=== PATIENT | male | born 1940 | race Caucasian/White ===

== ENCOUNTER 2022-06-22 09:07 | Outpatient (CLI) | payer MEDICARE, OTHER | END 2022-06-22 09:08 | disposition home or self-care (01) | LOC: MRI 09:07 | PROVIDERS: ATTEND Nurse Practitioner Family | DX: R41.3 Other amnesia (principal); F39 Unspecified mood [affective] disorder; I67.89 Other cerebrovascular disease; G93.89 Other specified disorders of brain | CPT/HCPCS: 70551 ==

== ENCOUNTER 2023-01-19 08:26 | Outpatient (CLI) | payer MEDICARE, OTHER | END 2023-01-19 08:27 | disposition home or self-care (01) | LOC: BICRAD 08:26 | PROVIDERS: ATTEND Nurse Practitioner Family | DX: J98.4 Other disorders of lung (principal) | CPT/HCPCS: 71046 ==

== ENCOUNTER 2023-02-08 09:44 | Outpatient (CLI) | payer MEDICARE, OTHER | END 2023-02-08 09:45 | disposition home or self-care (01) | LOC: RAD 09:44 | PROVIDERS: ATTEND Internal Medicine Critical Care Medicine | DX: R06.00 Dyspnea, unspecified (principal) | CPT/HCPCS: 71046 ==

== ENCOUNTER 2023-02-23 11:45 | Outpatient (CLI) | payer MEDICARE, OTHER | END 2023-02-23 11:46 | disposition home or self-care (01) | LOC: PET 11:45 | PROVIDERS: ATTEND Internal Medicine Critical Care Medicine | DX: R91.8 Other nonspecific abnormal finding of lung field (principal); C34.32 Malignant neoplasm of lower lobe, left bronchus or lung | CPT/HCPCS: 78815; A9552 ==

== ENCOUNTER 2023-03-27 06:09 | Inpatient (IN) | payer MEDICARE, OTHER ==
[2023-03-27] MEDS ORDERED: SUGAMMADEX SODIUM 200 MG/2 ML VIAL ONE (06:47)
[2023-03-27] MEDS ORDERED: Fentanyl 250 MCG/5 ML VIAL ONE (06:47)
[2023-03-27] MEDS ORDERED: Vasopressin 20 UNITS/ML VIAL ONE (06:47)
[2023-03-27] MEDS ORDERED: Rocuronium Bromide 50 MG/5 ML VIAL ONE (06:47)
[2023-03-27] MEDS ORDERED: Midazolam HCl 2 mg/2 ml Vial ONE (06:47)
[2023-03-27 07:01] LABS: #Basophils 0.1 thou/uL (0.0-0.2); #Eosinphils 0.1 thou/uL (0.0-0.7); #Monocytes 1.1 thou/uL (0.11-0.59); #Neutrophils 6.4 thou/uL (1.40-6.50); %Basophils 0.6 % (0.0-1.0); %Lymphocytes 15.6 % (21.0-51.0); %Monocytes 11.9 % (0.0-10.0); %Neutrophils 70.5 % (42.0-75.0); Hematocrit 39.1 % (42.0-52.0); Hemoglobin 12.7 g/dL (14.0-18.0); Mean Corpuscular HGB CONC 32.5 g/dL (32.0-36.0); Mean Corpuscular Volume 89.3 fl (78.0-98.0); Mean Platelet Volume 8.7 fL (7.4-10.4); Platelet Count 224 10x3/uL (130-400); RBC Distribution Width 13.7 % (11.5-14.5); Red Blood Cell (RBC) Count 4.38 mill/uL (4.70-6.10); White Blood Cell (WBC) Count 9.1 10x3/uL (4.8-10.8)
[2023-03-27] MEDS ORDERED: Lidocaine 1% MPF 2 ML VIAL ONE (07:15)
[2023-03-27] MEDS ORDERED: Lidocaine 2% PF 5 ML VIAL ONE (07:15)
[2023-03-27 07:22] LABS: Anion Gap 11 mmol/L (10-20); BUN (Urea Nitrogen) 19 mg/dL (8.4-25.7); Calc. Creatinine Clearance 88 mL/min (70-130); Calcium 9.6 mg/dL (7.8-10.44); Carbon Dioxide 28 mmol/L (23-31); Chloride 99 mmol/L (98-107); Estimated GFR 89; Glucose 134 mg/dL (83-110); Potassium 4.1 mmol/L (3.5-5.1); Sodium 134 mmol/L (136-145)
[2023-03-27] MEDS ORDERED: Sodium Chloride 0.9% 100 ML ONE (07:31)
[2023-03-27] MEDS ORDERED: CEFAZOLIN 2 GM VIAL ONE (07:31)
[2023-03-27] MEDS ORDERED: Rocuronium Bromide 10 MG/ML (10ML VIAL) ONE (07:50)
[2023-03-27] MEDS ORDERED: Ondansetron PF 4 MG/2 ML Vial ONE (07:50)
[2023-03-27] MEDS ORDERED: Lidocaine 1.5% w/Epi 1:200K 30 ML VIAL (Epid Use) ONE (07:50)
[2023-03-27] MEDS ORDERED: Dexamethasone 20 MG/5 ML VIAL ONE (07:50)
[2023-03-27] MEDS ORDERED: Lidocaine 1% PF 5 ML VIAL ONE ×2 (07:50→08:28)
[2023-03-27] MEDS ORDERED: PROPOFOL 200 MG/20 ML VIAL ONE (07:50)
[2023-03-27] MEDS ORDERED: Naloxone HCl 0.4 mg/ml Vial IV PRN (08:00)
[2023-03-27] MEDS ORDERED: diphenhydrAMINE 25 MG CAP PO PRN (08:00)
[2023-03-27] MEDS ORDERED: Promethazine HCl 25 MG SUPP PR PRN (08:00)
[2023-03-27] MEDS ORDERED: Bupivacaine 0.25% 10 ML VIAL EPIDURAL PRN (08:00)
[2023-03-27] MEDS ORDERED: Moisturizing Cream (Eucerin) 113 GM JAR TOP PRN (08:00)
[2023-03-27] MEDS ORDERED: diphenhydrAMINE 50 MG/ML VIAL IM PRN (08:00)
[2023-03-27] MEDS ORDERED: Promethazine HCl 25 MG/ML VIAL IM PRN ×2 (08:00→10:26)
[2023-03-27] MEDS ORDERED: Naloxone HCl 0.4 mg/ml Vial IVP PRN (08:00)
[2023-03-27] MEDS ORDERED: traMADol HCl 50 MG TAB PO PRN (08:00)
[2023-03-27] MEDS ORDERED: diphenhydrAMINE 50 MG/ML VIAL IVP PRN (08:00)
[2023-03-27] MEDS ORDERED: Ipratropium/Albuterol 3 ML NEB NEB PRN (10:26)
[2023-03-27] MEDS ORDERED: Phenylephrine 40 MG in Sodium Chloride 0.9% 250 ML 250 ML IVPB PRN (10:26)
[2023-03-27] MEDS ORDERED: Ondansetron PF 4 MG/2 ML Vial IVP PRN (10:26)
[2023-03-27] MEDS ORDERED: Ketorolac Tromethamine 30 MG/ML VIAL ONE (11:22)
[2023-03-27] MEDS ORDERED: fentaNYL 50 mcg/mL 1 mL Vial ONE (11:46)
[2023-03-27] MEDS: Sodium Chloride 0.9% 1,000 ML IV SCH ×2 (13:00→23:46)
[2023-03-27] MEDS: Ketorolac Tromethamine 30 MG/ML VIAL IVP SCH ×3 (13:28→23:54)
[2023-03-27] MEDS: CEFAZOLIN 2 GM in Sodium Chloride 0.9% 100 ML IVPB SCH ×2 (14:32→21:41)
[2023-03-27] MEDS: Insulin Regular 300 UNITS/3 ML VIAL SC PRN ×2 (16:27→20:24)
[2023-03-27] MEDS: metFORMIN 500 MG TAB PO SCH (20:23)
[2023-03-27] MEDS: Donepezil HCl 5 MG TAB PO SCH (20:23)
[2023-03-27] MEDS: Fentanyl/Bupivacaine 100 ML EPIDURAL SCH (22:25)
[2023-03-28 05:05] LABS: #Basophils 0.1 thou/uL (0.0-0.2); #Eosinphils 0.2 thou/uL (0.0-0.7); #Monocytes 1.4 thou/uL (0.11-0.59); #Neutrophils 9.5 thou/uL (1.40-6.50); %Basophils 0.4 % (0.0-1.0); %Eosinophils 1.2 % (0.0-10.0); %Lymphocytes 11.4 % (21.0-51.0); %Monocytes 10.9 % (0.0-10.0); %Neutrophils 75.6 % (42.0-75.0); Hematocrit 37.1 % (42.0-52.0); Mean Corpuscular HGB CONC 32.3 g/dL (32.0-36.0); Mean Corpuscular Hemoglobin 29.3 pg (27.0-31.0); Mean Corpuscular Volume 90.7 fl (78.0-98.0); Mean Platelet Volume 8.6 fL (7.4-10.4); Platelet Count 223 10x3/uL (130-400); Red Blood Cell (RBC) Count 4.09 mill/uL (4.70-6.10); White Blood Cell (WBC) Count 12.5 10x3/uL (4.8-10.8)
[2023-03-28 05:27] LABS: Anion Gap 11 mmol/L (10-20); BUN (Urea Nitrogen) 20 mg/dL (8.4-25.7); Calc. Creatinine Clearance 90 mL/min (70-130); Calcium 8.6 mg/dL (7.8-10.44); Carbon Dioxide 26 mmol/L (23-31); Chloride 101 mmol/L (98-107); Estimated GFR 90; Glucose 135 mg/dL (83-110); Potassium 4.7 mmol/L (3.5-5.1); Sodium 133 mmol/L (136-145)
[2023-03-28] MEDS: CEFAZOLIN 2 GM in Sodium Chloride 0.9% 100 ML IVPB SCH (05:32)
[2023-03-28] MEDS: Ketorolac Tromethamine 30 MG/ML VIAL IVP SCH ×3 (05:32→17:21)
[2023-03-28] MEDS: metFORMIN 500 MG TAB PO SCH ×2 (08:11→21:04)
[2023-03-28] MEDS: Sodium Chloride 0.9% 1,000 ML IV SCH (08:11)
[2023-03-28] MEDS: Empagliflozin 10 MG TAB PO SCH (08:12)
[2023-03-28] MEDS: Aspirin 81 mg Enteric Coated Tablet PO SCH (08:12)
[2023-03-28] MEDS: Cyanocobalamin (Vitamin B-12) 1,000 MCG TAB PO SCH (08:12)
[2023-03-28] MEDS: Ferrous Sulfate 325 MG TAB PO SCH (08:12)
[2023-03-28] MEDS: Glimepiride 1 MG TAB PO SCH (08:12)
[2023-03-28] MEDS: Sertraline 25 MG TAB PO SCH (08:12)
[2023-03-28] MEDS: Rosuvastatin 10 MG TAB PO SCH (08:12)
[2023-03-28] MEDS ORDERED: Non-Formulary Item 1 EACH (Ferrous Sulfate [Ferosul] 325 MG Tablet) PO SCH (09:00)
[2023-03-28] MEDS ORDERED: Non-Formulary Item 1 EACH (Sertraline Hcl [Zoloft] 50 MG Tablet) PO SCH (09:00)
[2023-03-28] MEDS ORDERED: Non-Formulary Item 1 EACH (Metformin Hcl [Metformin Hcl] 1,000 MG Tablet) PO SCH (09:58)
[2023-03-28] MEDS: Insulin Regular 300 UNITS/3 ML VIAL SC PRN ×3 (11:09→22:20)
[2023-03-28] MEDS: Fentanyl/Bupivacaine 100 ML EPIDURAL SCH (11:15)
[2023-03-28] MEDS: Donepezil HCl 5 MG TAB PO SCH (21:05)
[2023-03-28] MEDS: hydrALAZINE 20 MG/ML VIAL SLOW IVP PRN (22:25)
[2023-03-29] MEDS: Fentanyl/Bupivacaine 100 ML EPIDURAL SCH (00:24)
[2023-03-29] MEDS: Ketorolac Tromethamine 30 MG/ML VIAL IVP SCH ×2 (00:44→05:31)
[2023-03-29] MEDS: hydrALAZINE 20 MG/ML VIAL SLOW IVP PRN ×3 (03:51→22:28)
[2023-03-29] MEDS ORDERED: Furosemide 40 MG/4 ML VIAL SLOW IVP SCH (06:30)
[2023-03-29] MEDS: Ipratropium/Albuterol 3 ML NEB EZPAP SCH ×4 (06:41→23:16)
[2023-03-29] MEDS ORDERED: Furosemide 40 MG TAB PO SCH (07:30)
[2023-03-29] MEDS ORDERED: BUPIVACAINE 0.75% EPIDURAL SCH (08:00)
[2023-03-29] MEDS ORDERED: SODIUM CHLORIDE 0.9% EPIDURAL SCH (08:00)
[2023-03-29] MEDS: Ferrous Sulfate 325 MG TAB PO SCH (08:48)
[2023-03-29] MEDS: Glimepiride 1 MG TAB PO SCH (08:48)
[2023-03-29] MEDS: Empagliflozin 10 MG TAB PO SCH (08:49)
[2023-03-29] MEDS: Cyanocobalamin (Vitamin B-12) 1,000 MCG TAB PO SCH (08:49)
[2023-03-29] MEDS: Aspirin 81 mg Enteric Coated Tablet PO SCH (08:49)
[2023-03-29] MEDS: metFORMIN 500 MG TAB PO SCH ×2 (08:50→21:25)
[2023-03-29] MEDS: Sertraline 25 MG TAB PO SCH (08:50)
[2023-03-29] MEDS: Rosuvastatin 10 MG TAB PO SCH (08:50)
[2023-03-29] MEDS: HYDROcodone/Acetaminophen 5/325 mg Tablet PO PRN ×2 (11:17→21:26)
[2023-03-29] MEDS: Insulin Regular 300 UNITS/3 ML VIAL SC PRN ×2 (11:21→16:46)
[2023-03-29] MEDS: Ondansetron PF 4 MG/2 ML Vial IVP PRN (13:48)
[2023-03-29] MEDS: Furosemide 40 MG TAB PO SCH (14:45)
[2023-03-29] MEDS: Donepezil HCl 5 MG TAB PO SCH (21:27)
[2023-03-30] MEDS: Ondansetron PF 4 MG/2 ML Vial IVP PRN (00:13)
[2023-03-30] MEDS: Ipratropium/Albuterol 3 ML NEB EZPAP SCH ×4 (07:09→23:28)
[2023-03-30] MEDS ORDERED: Midazolam HCl 2 mg/2 ml Vial SLOW IVP SCH (09:00)
[2023-03-30] MEDS ORDERED: fentaNYL 50 mcg/mL 1 mL Vial SLOW IVP SCH (09:00)
[2023-03-30 09:30] LABS: #Eosinphils 0.1 thou/uL (0.0-0.7); #Monocytes 1.3 thou/uL (0.11-0.59); #Neutrophils 11.9 thou/uL (1.40-6.50); %Basophils 0.2 % (0.0-1.0); %Eosinophils 0.7 % (0.0-10.0); %Lymphocytes 5.5 % (21.0-51.0); %Monocytes 9.3 % (0.0-10.0); %Neutrophils 83.7 % (42.0-75.0); Hematocrit 42.3 % (42.0-52.0); Hemoglobin 13.8 g/dL (14.0-18.0); Mean Corpuscular HGB CONC 32.6 g/dL (32.0-36.0); Mean Corpuscular Hemoglobin 28.9 pg (27.0-31.0); Mean Corpuscular Volume 88.5 fl (78.0-98.0); Mean Platelet Volume 8.5 fL (7.4-10.4); Platelet Count 288 10x3/uL (130-400); Red Blood Cell (RBC) Count 4.78 mill/uL (4.70-6.10); White Blood Cell (WBC) Count 14.2 10x3/uL (4.8-10.8)
[2023-03-30] MEDS: Glimepiride 1 MG TAB PO SCH (09:32)
[2023-03-30] MEDS: Ferrous Sulfate 325 MG TAB PO SCH (09:32)
[2023-03-30] MEDS: Cyanocobalamin (Vitamin B-12) 1,000 MCG TAB PO SCH (09:33)
[2023-03-30] MEDS: Empagliflozin 10 MG TAB PO SCH (09:33)
[2023-03-30] MEDS: Aspirin 81 mg Enteric Coated Tablet PO SCH (09:33)
[2023-03-30] MEDS: Losartan 25 MG TAB PO SCH (09:34)
[2023-03-30] MEDS: Rosuvastatin 10 MG TAB PO SCH (09:34)
[2023-03-30] MEDS: Sertraline 25 MG TAB PO SCH (09:34)
[2023-03-30] MEDS: metFORMIN 500 MG TAB PO SCH ×2 (09:34→20:49)
[2023-03-30 09:40] LABS: Anion Gap 19 mmol/L (10-20); BUN (Urea Nitrogen) 20 mg/dL (8.4-25.7); Calc. Creatinine Clearance 84 mL/min (70-130); Calcium 9.3 mg/dL (7.8-10.44); Carbon Dioxide 22 mmol/L (23-31); Chloride 91 mmol/L (98-107); Estimated GFR 88; Glucose 145 mg/dL (83-110); Potassium 4.2 mmol/L (3.5-5.1); Sodium 128 mmol/L (136-145)
[2023-03-30] MEDS ORDERED: Acetylcysteine (MUCOMYST) 200 MG/ML (10 ML VIAL) NEB SCH (10:00)
[2023-03-30] MEDS: Bisacodyl 10 MG SUPP PR PRN (10:40)
[2023-03-30] MEDS ORDERED: Lidocaine 1% (PF) 30 ML VIAL ONE (14:11)
[2023-03-30] MEDS ORDERED: Lidocaine 2% Jelly 5 ML TUBE TOP SCH (15:45)
[2023-03-30] MEDS ORDERED: Lidocaine 1% (PF) 30 ML VIAL FS SCH (15:45)
[2023-03-30] MEDS: Furosemide 40 MG TAB PO SCH (15:55)
[2023-03-30] MEDS: Acetylcysteine 20% 200 MG/ML 30 ML VIAL INH SCH (18:19)
[2023-03-30] MEDS: Insulin Regular 300 UNITS/3 ML VIAL SC PRN (20:48)
[2023-03-30] MEDS: Donepezil HCl 5 MG TAB PO SCH (20:49)
[2023-03-31] MEDS: Acetylcysteine 20% 200 MG/ML 30 ML VIAL INH SCH ×2 (06:30→18:26)
[2023-03-31] MEDS: Ipratropium/Albuterol 3 ML NEB EZPAP SCH ×5 (06:31→22:12)
[2023-03-31] MEDS: HYDROcodone/Acetaminophen 5/325 mg Tablet PO PRN ×2 (07:09→16:06)
[2023-03-31] MEDS: Ondansetron PF 4 MG/2 ML Vial IVP PRN (07:09)
[2023-03-31] MEDS: Empagliflozin 10 MG TAB PO SCH (08:01)
[2023-03-31] MEDS: metFORMIN 500 MG TAB PO SCH ×2 (08:02→20:13)
[2023-03-31] MEDS: Rosuvastatin 10 MG TAB PO SCH (08:02)
[2023-03-31] MEDS: Aspirin 81 mg Enteric Coated Tablet PO SCH (08:02)
[2023-03-31] MEDS: Ferrous Sulfate 325 MG TAB PO SCH (08:02)
[2023-03-31] MEDS: Cyanocobalamin (Vitamin B-12) 1,000 MCG TAB PO SCH (08:02)
[2023-03-31] MEDS: Glimepiride 1 MG TAB PO SCH (08:02)
[2023-03-31] MEDS: Sertraline 25 MG TAB PO SCH (08:02)
[2023-03-31] MEDS: Losartan 25 MG TAB PO SCH (09:53)
[2023-03-31] MEDS: cefTRIAXone\\ROCEPHIN 2 GM in Sodium Chloride 0.9% 100 ML IVPB SCH (10:55)
[2023-03-31] MEDS: Insulin Regular 300 UNITS/3 ML VIAL SC PRN ×3 (12:11→20:16)
[2023-03-31] MEDS: Furosemide 40 MG TAB PO SCH ×2 (15:40→17:24)
[2023-03-31] MEDS: traMADol HCl 50 MG TAB PO PRN (17:58)
[2023-03-31] MEDS: Donepezil HCl 5 MG TAB PO SCH (20:13)
[2023-04-01] MEDS: Ipratropium/Albuterol 3 ML NEB EZPAP SCH ×6 (02:22→22:19)
[2023-04-01] MEDS: HYDROcodone/Acetaminophen 5/325 mg Tablet PO PRN ×3 (06:00→23:07)
[2023-04-01] MEDS: Acetylcysteine 20% 200 MG/ML 30 ML VIAL INH SCH ×2 (06:33→19:37)
[2023-04-01] MEDS: metFORMIN 500 MG TAB PO SCH ×2 (07:19→20:33)
[2023-04-01] MEDS: Ferrous Sulfate 325 MG TAB PO SCH (07:20)
[2023-04-01] MEDS: Glimepiride 1 MG TAB PO SCH (07:20)
[2023-04-01] MEDS: Empagliflozin 10 MG TAB PO SCH (07:20)
[2023-04-01] MEDS: Losartan 25 MG TAB PO SCH (09:32)
[2023-04-01] MEDS: cefTRIAXone\\ROCEPHIN 2 GM in Sodium Chloride 0.9% 100 ML IVPB SCH (09:39)
[2023-04-01] MEDS: Sertraline 25 MG TAB PO SCH (09:39)
[2023-04-01] MEDS: Rosuvastatin 10 MG TAB PO SCH (09:39)
[2023-04-01] MEDS: Cyanocobalamin (Vitamin B-12) 1,000 MCG TAB PO SCH (09:39)
[2023-04-01] MEDS: Aspirin 81 mg Enteric Coated Tablet PO SCH (09:39)
[2023-04-01] MEDS: Insulin Regular 300 UNITS/3 ML VIAL SC PRN ×2 (13:19→20:34)
[2023-04-01] MEDS: Furosemide 40 MG TAB PO SCH (15:57)
[2023-04-01] MEDS: Donepezil HCl 5 MG TAB PO SCH (20:33)
[2023-04-02] MEDS: Ipratropium/Albuterol 3 ML NEB EZPAP SCH ×6 (02:17→21:33)
[2023-04-02] MEDS: Acetylcysteine 20% 200 MG/ML 30 ML VIAL INH SCH ×2 (06:43→18:17)
[2023-04-02] MEDS: Glimepiride 1 MG TAB PO SCH (07:33)
[2023-04-02] MEDS: Ferrous Sulfate 325 MG TAB PO SCH (07:33)
[2023-04-02] MEDS: Empagliflozin 10 MG TAB PO SCH (08:23)
[2023-04-02] MEDS: Rosuvastatin 10 MG TAB PO SCH (08:23)
[2023-04-02] MEDS: metFORMIN 500 MG TAB PO SCH ×2 (08:23→20:07)
[2023-04-02] MEDS: Sertraline 25 MG TAB PO SCH (08:23)
[2023-04-02] MEDS: Losartan 25 MG TAB PO SCH (08:23)
[2023-04-02] MEDS: Aspirin 81 mg Enteric Coated Tablet PO SCH (08:23)
[2023-04-02] MEDS: Cyanocobalamin (Vitamin B-12) 1,000 MCG TAB PO SCH (08:23)
[2023-04-02] MEDS: HYDROcodone/Acetaminophen 5/325 mg Tablet PO PRN ×2 (10:14→20:08)
[2023-04-02] MEDS: cefTRIAXone\\ROCEPHIN 2 GM in Sodium Chloride 0.9% 100 ML IVPB SCH (10:15)
[2023-04-02] MEDS: Insulin Regular 300 UNITS/3 ML VIAL SC PRN ×2 (13:59→20:30)
[2023-04-02] MEDS: Furosemide 40 MG TAB PO SCH (16:00)
[2023-04-02] MEDS: Cefepime 2 GM in Sodium Chloride 0.9% 100 ML IVPB SCH (20:04)
[2023-04-02] MEDS: Donepezil HCl 5 MG TAB PO SCH (20:06)
[2023-04-03] MEDS: HYDROcodone/Acetaminophen 5/325 mg Tablet PO PRN (00:30)
[2023-04-03] MEDS: Ipratropium/Albuterol 3 ML NEB EZPAP SCH ×6 (02:10→21:49)
[2023-04-03] MEDS: Acetylcysteine 20% 200 MG/ML 30 ML VIAL INH SCH ×2 (07:08→18:22)
[2023-04-03] MEDS: Rosuvastatin 10 MG TAB PO SCH (09:41)
[2023-04-03] MEDS: Cefepime 2 GM in Sodium Chloride 0.9% 100 ML IVPB SCH (09:41)
[2023-04-03] MEDS: metFORMIN 500 MG TAB PO SCH ×2 (09:41→21:37)
[2023-04-03] MEDS: Glimepiride 1 MG TAB PO SCH (09:41)
[2023-04-03] MEDS: Losartan 25 MG TAB PO SCH (09:41)
[2023-04-03] MEDS: Ferrous Sulfate 325 MG TAB PO SCH (09:41)
[2023-04-03] MEDS: Empagliflozin 10 MG TAB PO SCH (09:42)
[2023-04-03] MEDS: Aspirin 81 mg Enteric Coated Tablet PO SCH (09:42)
[2023-04-03] MEDS: Cyanocobalamin (Vitamin B-12) 1,000 MCG TAB PO SCH (09:42)
[2023-04-03] MEDS: Sertraline 25 MG TAB PO SCH (09:42)
[2023-04-03] MEDS: Ondansetron PF 4 MG/2 ML Vial IVP PRN (09:54)
[2023-04-03] MEDS ORDERED: LevoFLOXacin 750 MG TAB PO SCH (10:45)
[2023-04-03 15:28] LABS: #Basophils 0.1 thou/uL (0.0-0.2); #Eosinphils 0.3 thou/uL (0.0-0.7); #Monocytes 1.1 thou/uL (0.11-0.59); #Neutrophils 7.6 thou/uL (1.40-6.50); %Basophils 0.5 % (0.0-1.0); %Lymphocytes 12.7 % (21.0-51.0); %Monocytes 10.4 % (0.0-10.0); %Neutrophils 72.9 % (42.0-75.0); Hematocrit 36.4 % (42.0-52.0); Hemoglobin 11.8 g/dL (14.0-18.0); Mean Corpuscular HGB CONC 32.4 g/dL (32.0-36.0); Mean Corpuscular Hemoglobin 29.1 pg (27.0-31.0); Mean Corpuscular Volume 89.9 fl (78.0-98.0); Mean Platelet Volume 8.3 fL (7.4-10.4); Platelet Count 238 10x3/uL (130-400); RBC Distribution Width 13.5 % (11.5-14.5); Red Blood Cell (RBC) Count 4.05 mill/uL (4.70-6.10); White Blood Cell (WBC) Count 10.4 10x3/uL (4.8-10.8)
[2023-04-03] MEDS: traMADol HCl 50 MG TAB PO PRN (19:14)
[2023-04-03] MEDS: Donepezil HCl 5 MG TAB PO SCH (21:36)
[2023-04-04] MEDS: Ipratropium/Albuterol 3 ML NEB EZPAP SCH ×6 (02:46→21:54)
[2023-04-04 04:49] LABS: Albumin 2.8 g/dL (3.4-4.8); Anion Gap 13 mmol/L (10-20); BUN (Urea Nitrogen) 20 mg/dL (8.4-25.7); Calc. Creatinine Clearance 97 mL/min (70-130); Calcium 9.1 mg/dL (7.8-10.44); Carbon Dioxide 31 mmol/L (23-31); Chloride 89 mmol/L (98-107); Estimated GFR 93; Glucose 100 mg/dL (83-110); Magnesium 1.4 mg/dL (1.6-2.6); Potassium 4.5 mmol/L (3.5-5.1); Sodium 128 mmol/L (136-145)
[2023-04-04] MEDS: traMADol HCl 50 MG TAB PO PRN ×2 (05:56→17:10)
[2023-04-04] MEDS: LevoFLOXacin 750 MG TAB PO SCH (05:56)
[2023-04-04] MEDS: Acetylcysteine 20% 200 MG/ML 30 ML VIAL INH SCH ×2 (07:02→18:24)
[2023-04-04] MEDS ORDERED: Furosemide 40 MG TAB PO SCH (07:30)
[2023-04-04] MEDS: metFORMIN 500 MG TAB PO SCH ×2 (08:48→21:24)
[2023-04-04] MEDS: Cyanocobalamin (Vitamin B-12) 1,000 MCG TAB PO SCH (08:48)
[2023-04-04] MEDS: Sertraline 25 MG TAB PO SCH ×2 (08:48→08:49)
[2023-04-04] MEDS: Rosuvastatin 10 MG TAB PO SCH (08:48)
[2023-04-04] MEDS: Aspirin 81 mg Enteric Coated Tablet PO SCH (08:49)
[2023-04-04] MEDS: Ferrous Sulfate 325 MG TAB PO SCH (08:49)
[2023-04-04] MEDS: Empagliflozin 10 MG TAB PO SCH (08:49)
[2023-04-04] MEDS: Losartan 25 MG TAB PO SCH (08:49)
[2023-04-04 09:07] VITALS: BMI 26.4
[2023-04-04] MEDS: Glimepiride 1 MG TAB PO SCH (09:59)
[2023-04-04] MEDS: Bisacodyl 10 MG SUPP PR PRN (09:59)
[2023-04-04] MEDS: Ondansetron PF 4 MG/2 ML Vial IVP PRN (12:48)
[2023-04-04] MEDS ORDERED: Magnesium Sulfate In Water 4 GM in Premix Bag 1 BAG IVPB SCH (16:45)
[2023-04-04] MEDS: Donepezil HCl 5 MG TAB PO SCH (21:24)
[2023-04-04] MEDS: Insulin Regular 300 UNITS/3 ML VIAL SC PRN (21:34)
[2023-04-05] MEDS: Ipratropium/Albuterol 3 ML NEB EZPAP SCH ×6 (01:57→22:34)
[2023-04-05] MEDS: LevoFLOXacin 750 MG TAB PO SCH (06:39)
[2023-04-05] MEDS: Acetylcysteine 20% 200 MG/ML 30 ML VIAL INH SCH (07:33)
[2023-04-05] MEDS ORDERED: Sodium Chloride 0.9% 500 ML IV SCH ×2 (09:15)
[2023-04-05] MEDS: Aspirin 81 mg Enteric Coated Tablet PO SCH (10:17)
[2023-04-05] MEDS: metFORMIN 500 MG TAB PO SCH ×2 (10:18→20:01)
[2023-04-05] MEDS: Ondansetron PF 4 MG/2 ML Vial IVP PRN (10:19)
[2023-04-05] MEDS: Sertraline 25 MG TAB PO SCH (10:19)
[2023-04-05] MEDS: Empagliflozin 10 MG TAB PO SCH (10:20)
[2023-04-05] MEDS: Rosuvastatin 10 MG TAB PO SCH (10:20)
[2023-04-05] MEDS: Cyanocobalamin (Vitamin B-12) 1,000 MCG TAB PO SCH (10:20)
[2023-04-05] MEDS: Losartan 25 MG TAB PO SCH (10:21)
[2023-04-05] MEDS: Glimepiride 1 MG TAB PO SCH (10:25)
[2023-04-05] MEDS: Ferrous Sulfate 325 MG TAB PO SCH (10:25)
[2023-04-05] MEDS: Insulin Regular 300 UNITS/3 ML VIAL SC PRN ×2 (11:37→17:30)
[2023-04-05] MEDS: HYDROcodone/Acetaminophen 5/325 mg Tablet PO PRN ×2 (12:01→20:02)
[2023-04-05] MEDS: Donepezil HCl 5 MG TAB PO SCH (20:03)
[2023-04-06] MEDS: HYDROcodone/Acetaminophen 5/325 mg Tablet PO PRN ×2 (00:44→15:37)
[2023-04-06] MEDS: Ipratropium/Albuterol 3 ML NEB EZPAP SCH ×3 (01:49→10:08)
[2023-04-06 03:57] LABS: #Basophils 0.1 thou/uL (0.0-0.2); #Eosinphils 0.4 thou/uL (0.0-0.7); #Monocytes 1.3 thou/uL (0.11-0.59); #Neutrophils 8.6 thou/uL (1.40-6.50); %Basophils 0.4 % (0.0-1.0); %Eosinophils 3.4 % (0.0-10.0); %Lymphocytes 7.7 % (21.0-51.0); %Monocytes 11.1 % (0.0-10.0); %Neutrophils 76.3 % (42.0-75.0); Hematocrit 33.1 % (42.0-52.0); Mean Corpuscular HGB CONC 33.2 g/dL (32.0-36.0); Mean Corpuscular Volume 87.3 fl (78.0-98.0); Mean Platelet Volume 8.7 fL (7.4-10.4); Platelet Count 246 10x3/uL (130-400); RBC Distribution Width 13.3 % (11.5-14.5); Red Blood Cell (RBC) Count 3.79 mill/uL (4.70-6.10); White Blood Cell (WBC) Count 11.3 10x3/uL (4.8-10.8)
[2023-04-06 04:22] LABS: Anion Gap 11 mmol/L (10-20); BUN (Urea Nitrogen) 17 mg/dL (8.4-25.7); Calc. Creatinine Clearance 97 mL/min (70-130); Calcium 8.7 mg/dL (7.8-10.44); Carbon Dioxide 27 mmol/L (23-31); Chloride 91 mmol/L (98-107); Estimated GFR 93; Glucose 111 mg/dL (83-110); Potassium 4.2 mmol/L (3.5-5.1); Sodium 125 mmol/L (136-145)
[2023-04-06] MEDS: Glimepiride 1 MG TAB PO SCH (08:26)
[2023-04-06] MEDS: Aspirin 81 mg Enteric Coated Tablet PO SCH (08:26)
[2023-04-06] MEDS: Sertraline 25 MG TAB PO SCH (08:28)
[2023-04-06] MEDS: Rosuvastatin 10 MG TAB PO SCH (08:29)
[2023-04-06] MEDS: metFORMIN 500 MG TAB PO SCH (08:29)
[2023-04-06] MEDS: Ferrous Sulfate 325 MG TAB PO SCH (08:30)
[2023-04-06] MEDS: Losartan 25 MG TAB PO SCH ×2 (08:30→09:13)
[2023-04-06] MEDS: Empagliflozin 10 MG TAB PO SCH (08:49)
[2023-04-06] MEDS: Cyanocobalamin (Vitamin B-12) 1,000 MCG TAB PO SCH (08:49)
[2023-04-06] MEDS ORDERED: LevoFLOXacin 750 MG TAB PO SCH (09:00)
[2023-04-06] MEDS: Insulin Regular 300 UNITS/3 ML VIAL SC PRN (12:47)
[2023-04-06 12:53] VITALS: BP 140/62
[2023-04-06 16:15] VITALS: TEMP 98.1
== END 2023-04-06 16:15 | DRG 163 ==
LOC: SURG A 06:09 → CCU 12:21
PROVIDERS: ADMIT Thoracic Surgery (Cardiothoracic Vascular Surgery); ATTEND Thoracic Surgery (Cardiothoracic Vascular Surgery)
PROC: 0BTJ4ZZ Resection of Left Lower Lung Lobe, Percutaneous Endoscopic Approach (ICD-10-PCS; principal; 2023-03-27)
PROC: 0W9B40Z Drainage of Left Pleural Cavity with Drainage Device, Percutaneous Endoscopic Approach (ICD-10-PCS; 2023-03-27)
PROC: 07T74ZZ Resection of Thorax Lymphatic, Percutaneous Endoscopic Approach (ICD-10-PCS; 2023-03-27)
PROC: 0BJ08ZZ Inspection of Tracheobronchial Tree, Via Natural or Artificial Opening Endoscopic (ICD-10-PCS; 2023-03-27)
PROC: 3E033XZ Introduction of Vasopressor into Peripheral Vein, Percutaneous Approach (ICD-10-PCS; 2023-03-27)
PROC: 0BC98ZZ Extirpation of Matter from Lingula Bronchus, Via Natural or Artificial Opening Endoscopic (ICD-10-PCS; 2023-03-30)
PROC: 0BC88ZZ Extirpation of Matter from Left Upper Lobe Bronchus, Via Natural or Artificial Opening Endoscopic (ICD-10-PCS; 2023-03-30)
DX: C34.32 Malignant neoplasm of lower lobe, left bronchus or lung (principal); J96.21 Acute and chronic respiratory failure with hypoxia; T17.890A Other foreign object in other parts of respiratory tract causing asphyxiation, initial encounter; J95.89 Other postprocedural complications and disorders of respiratory system, not elsewhere classified; J98.11 Atelectasis; C77.1 Secondary and unspecified malignant neoplasm of intrathoracic lymph nodes; F02.811 Dementia in other diseases classified elsewhere, unspecified severity, with agitation; E87.1 Hypo-osmolality and hyponatremia; I10 Essential (primary) hypertension; E78.5 Hyperlipidemia, unspecified; G47.33 Obstructive sleep apnea (adult) (pediatric); D64.9 Anemia, unspecified; D72.829 Elevated white blood cell count, unspecified; Z87.891 Personal history of nicotine dependence; G30.9 Alzheimer's disease, unspecified; Z79.899 Other long term (current) drug therapy; I95.1 Orthostatic hypotension
CPT/HCPCS: 36415; 36416; 71045; 80048; 82040; 82310; 83735; 85025; 86850; 86900; 86901; 87070; 87077; 87186; 87205; 88309; 88331; 88332; 94640; A4649; C1729; J0132; J0360; J0692; J0696; J1100; J1642; J1650; J1815; J1885; J1940; J2001; J2250; J2405; J2704; J3010; J3475; J3490; J7030; J7050; J7620; P9045

== ENCOUNTER 2023-04-07 06:39 | Inpatient (IN) | payer MEDICARE, OTHER ==
[2023-04-07 07:06] LABS: #Neutrophils 18.3 thou/uL (1.40-6.50); %Basophils 0.2 % (0.0-1.0); %Lymphocytes 1.7 % (21.0-51.0); %Monocytes 5.2 % (0.0-10.0); %Neutrophils 91.5 % (42.0-75.0); Hematocrit 40.5 % (42.0-52.0); Hemoglobin 13.3 g/dL (14.0-18.0); Mean Corpuscular HGB CONC 32.8 g/dL (32.0-36.0); Mean Corpuscular Hemoglobin 28.9 pg (27.0-31.0); Mean Platelet Volume 8.7 fL (7.4-10.4); Platelet Count 295 10x3/uL (130-400); RBC Distribution Width 13.5 % (11.5-14.5)
[2023-04-07] MEDS ORDERED: LevoFLOXacin 750 mg/D5W 150 ml Premix Bag ONE (07:16)
[2023-04-07] MEDS ORDERED: Cefepime 2 GM VIAL ONE (07:16)
[2023-04-07 07:20] LABS: INR-International Normal Ratio 1.4; Prothrombin Time 17.5 sec (12.0-14.7)
[2023-04-07 07:21] LABS: PTT 36.1 sec (22.9-36.1)
[2023-04-07] MEDS ORDERED: VANCOMYCIN 2 GRAM/500 ML BAG 2 GM in Premix Bag 1 BAG IVPB SCH (07:30)
[2023-04-07 07:38] LABS: ALT (SGPT) 18 U/L (8-55); AST (SGOT) 21 U/L (5-34); Alkaline Phosphatase 103 U/L (40-110); Anion Gap 20 mmol/L (10-20); BUN (Urea Nitrogen) 26 mg/dL (8.4-25.7); Bilirubin, Total 0.5 mg/dL (0.2-1.2); Calc. Creatinine Clearance 0 mL/min (70-130); Calcium 9.7 mg/dL (7.8-10.44); Carbon Dioxide 22 mmol/L (23-31); Chloride 92 mmol/L (98-107); Estimated GFR 88; Globulin 3.7 g/dL (2.4-3.5); Glucose 220 mg/dL (83-110); Potassium 5.1 mmol/L (3.5-5.1); Protein, Total 6.7 g/dL (5.8-8.1); Sodium 129 mmol/L (136-145)
[2023-04-07 07:39] LABS: Troponin I 0.129 ng/mL (< 0.028)
[2023-04-07 07:53] LABS: Actual Bicarbonate (HCO3a) 20.2 mEq/L (22-28); Analyzer IN Cardio ER; Base Excess (BEa) -4.4 mEq/L (-2.0 to +3.0); CO2 Tension 35.8 mmHg (35.0-45.0); Calcium, Ionized (arterial) 1.19 mmol/L (1.12-1.30); Carboxyhemoglobin (COHb) 1.2 gm% (0.0-3.0); Hematocrit-ABG 40 % (42.0-52.0); Hemoglobin (Hb) 13.5 g/dL (14.0-18.0); Potassium - ABG Lab 4.61 mmol/L (3.70-5.30); pH, Arterial 7.369 (7.35-7.45)
[2023-04-07 07:54] LABS: Puncture Site RRA
[2023-04-07 08:21] LABS: Bacteria/HPF None Seen HPF (None Seen); Bilirubin Negative (Negative); Blood, Urine Trace (Negative); CAUTI Indications for Culture Alt mental st,lethar; Clarity Clear (Clear); Glucose, Urine (Dipstick) Greater than 1000 mg/dL (Negative); Ketone, Urine 60 mg/dL (Negative); Leukocyte Negative Leu/uL (Negative); Nitrite Negative (Negative); Protein, Urine (Dipstick) 20 mg/dL (Neg-Trace); RBC/HPF 0-3 HPF (0-3); Specific Gravity, Urine 1.032 (1.002-1.036); Squamous Epithelial None Seen HPF (0-3); Urobilinogen Normal mg/dL (Less than 2); WBC/HPF 0-3 HPF (0-3)
[2023-04-07 08:23] LABS: Urine Culture Reflex No No
[2023-04-07 08:57] LABS: SARS-CoV-2 NAA Rapid Test Not Detected (NotDetected)
[2023-04-07 10:29] LABS: Lactic Acid 1.1 mmol/L (0.5-2.2)
[2023-04-07] MEDS ORDERED: VANCOMYCIN IVPB PRN (12:02)
[2023-04-07] MEDS ORDERED: Bisacodyl 10 MG SUPP PR PRN (12:16)
[2023-04-07] MEDS ORDERED: Senokot S 8.6-50 MG TAB PO PRN (12:16)
[2023-04-07] MEDS ORDERED: Acetaminophen 325 MG TAB PO PRN (12:16)
[2023-04-07] MEDS ORDERED: Guaifenesin DM 100-10/5 ML UDCUP PO PRN (12:16)
[2023-04-07] MEDS ORDERED: Ipratropium/Albuterol 3 ML NEB EZPAP PRN (12:47)
[2023-04-07] MEDS ORDERED: traMADol HCl 50 MG TAB PO PRN (14:07)
[2023-04-07 14:11] VITALS: BMI 24.0
[2023-04-07] MEDS: Ipratropium/Albuterol 3 ML NEB NEB SCH ×2 (18:56→22:42)
[2023-04-07] MEDS ORDERED: Cefepime 2 GM in Sodium Chloride 0.9% 100 ML IVPB SCH (20:00)
[2023-04-07] MEDS ORDERED: Metoprolol Tartrate 5 MG/5 ML VIAL IVP PRN (20:03)
[2023-04-07 20:09] VITALS: TEMP 98.9
[2023-04-07] MEDS ORDERED: Lactated Ringer's 500 ML IV SCH (20:15)
[2023-04-07] MEDS ORDERED: Vancomycin 1 GM in Premix Bag 1 BAG IVPB SCH (21:00)
[2023-04-07] MEDS ORDERED: Famotidine/PF 20 mg/2ml Vial SLOW IVP SCH (21:00)
[2023-04-07] MEDS ORDERED: VANCOMYCIN HCL IVPB SCH (21:00)
[2023-04-07] MEDS ORDERED: Donepezil HCl 5 MG TAB PO SCH (21:00)
[2023-04-07] MEDS ORDERED: SODIUM CHLORIDE 0.9% IVPB SCH (21:00)
[2023-04-07] MEDS ORDERED: Furosemide 40 MG/4 ML VIAL ONE (21:45)
[2023-04-07] MEDS ORDERED: Furosemide 40 MG/4 ML VIAL SLOW IVP SCH (22:00)
[2023-04-07 22:02] LABS: Base Excess (BEa) -15.1 mEq/L (-2.0 to +3.0); CO2 Tension 29.8 mmHg (35.0-45.0); Calcium, Ionized (arterial) 1.28 mmol/L (1.12-1.30); Carboxyhemoglobin (COHb) 1.1 gm% (0.0-3.0); Hematocrit-ABG 39 % (42.0-52.0); Hemoglobin (Hb) 13.2 g/dL (14.0-18.0)
[2023-04-07] MEDS ORDERED: Rocuronium Bromide 10 MG/ML (10ML VIAL) ONE (22:25)
[2023-04-07] MEDS ORDERED: Ventilator Sedation Protocol 1 EACH FS SCH (22:30)
[2023-04-07] MEDS ORDERED: Lorazepam 2 MG/ML VIAL SLOW IVP PRN (22:45)
[2023-04-07] MEDS ORDERED: Fentanyl CADD 100 ML IV SCH (22:45)
[2023-04-07] MEDS ORDERED: Fentanyl BOLUS 250 ML IVPB PRN (22:45)
[2023-04-07] MEDS ORDERED: Morphine 2 MG/ML VIAL SLOW IVP PRN (22:45)
[2023-04-07] MEDS ORDERED: DISCONTINUE PREVIOUS NARCOTIC PAIN MEDICATIONS AND BENZODIAZEPINES FS SCH (22:45)
[2023-04-07] MEDS ORDERED: Propofol BOLUS 1,000 MG/100 ML VIAL IV PRN (22:45)
[2023-04-07] MEDS ORDERED: Propofol 1,000 MG/100 ML VIAL IV PRN (22:45)
[2023-04-07] MEDS ORDERED: Acetylcysteine 20% 200 MG/ML 30 ML VIAL INH SCH (23:00)
[2023-04-07 23:03] LABS: Puncture Site RRA
[2023-04-07] MEDS ORDERED: Rocuronium Bromide 10 MG/ML (10ML VIAL) IVP SCH (23:30)
[2023-04-07] MEDS ORDERED: Magnesium 2 GM/50 ML(in water) 2 GM in Premix Bag 1 BAG IVPB SCH (23:45)
[2023-04-07 23:46] LABS: ALT (SGPT) 17 U/L (8-55); AST (SGOT) 28 U/L (5-34); Alkaline Phosphatase 124 U/L (40-110); Anion Gap 25 mmol/L (10-20); BUN (Urea Nitrogen) 28 mg/dL (8.4-25.7); Bilirubin, Total 0.8 mg/dL (0.2-1.2); Calc. Creatinine Clearance 74 mL/min (70-130); Calcium 9.4 mg/dL (7.8-10.44); Carbon Dioxide 13 mmol/L (23-31); Chloride 100 mmol/L (98-107); Estimated GFR 86; Globulin 3.8 g/dL (2.4-3.5); Glucose 233 mg/dL (83-110); Potassium 4.1 mmol/L (3.5-5.1); Protein, Total 6.8 g/dL (5.8-8.1); Sodium 134 mmol/L (136-145)
[2023-04-08] LABS: Troponin I 1.484 ng/mL (< 0.028)
[2023-04-08] MEDS ORDERED: NOREPINEPHRINE 8 MG/250 ML-D5W 250 ML IVPB SCH (00:15)
[2023-04-08] MEDS ORDERED: Sodium Bicarb 50 MEQ/50 ML VIAL IVP SCH (00:15)
[2023-04-08] MEDS ORDERED: Heparin 25,000 units/D5W 500 ML IVPB SCH (00:30)
[2023-04-08] MEDS ORDERED: Heparin 10,000 UNITS/ 10 ML VIAL SLOW IVP SCH (00:30)
[2023-04-08 00:38] LABS: Hematocrit 38.9 % (42.0-52.0); Hemoglobin 12.2 g/dL (14.0-18.0); Platelet Count 279 10x3/uL (130-400)
[2023-04-08 02:26] LABS: Actual Bicarbonate (HCO3a) 16.2 mEq/L (22-28); Base Excess (BEa) -13.4 mEq/L (-2.0 to +3.0); CO2 Tension 53.3 mmHg (35.0-45.0); Calcium, Ionized (arterial) 1.25 mmol/L (1.12-1.30); Carboxyhemoglobin (COHb) 0.9 gm% (0.0-3.0); Hematocrit-ABG 37 % (42.0-52.0); Hemoglobin (Hb) 12.5 g/dL (14.0-18.0); O2 Tension (PaO2), arterial 73.8 mmHg (> 60.0); Potassium - ABG Lab 4.04 mmol/L (3.70-5.30)
[2023-04-08 02:32] LABS: Puncture Site RRA
[2023-04-08 02:33] LABS: ALV-art Gradient 429.975 mmHg (0-20)
[2023-04-08] MEDS ORDERED: Vecuronium 10 MG VIAL IVP PRN (04:06)
[2023-04-08 04:08] LABS: Hematocrit 38.9 % (42.0-52.0); Hemoglobin 12.2 g/dL (14.0-18.0); Mean Corpuscular HGB CONC 31.4 g/dL (32.0-36.0); Mean Platelet Volume 8.9 fL (7.4-10.4); Platelet Count 262 10x3/uL (130-400); RBC Distribution Width 14.1 % (11.5-14.5); White Blood Cell (WBC) Count 36.6 10x3/uL (4.8-10.8)
[2023-04-08] MEDS ORDERED: Furosemide 40 MG/4 ML VIAL SLOW IVP SCH (04:15)
[2023-04-08 04:31] LABS: Delete Auto Diff?? YES; Manual Diff?? YES
[2023-04-08 04:32] LABS: ALT (SGPT) 18 U/L (8-55); AST (SGOT) 36 U/L (5-34); Albumin 2.9 g/dL (3.4-4.8); Alkaline Phosphatase 117 U/L (40-110); Anion Gap 28 mmol/L (10-20); BUN (Urea Nitrogen) 32 mg/dL (8.4-25.7); Bilirubin, Total 0.5 mg/dL (0.2-1.2); Calc. Creatinine Clearance 62 mL/min (70-130); Calcium 9.6 mg/dL (7.8-10.44); Carbon Dioxide 13 mmol/L (23-31); Chloride 100 mmol/L (98-107); Estimated GFR 72; Globulin 3.6 g/dL (2.4-3.5); Glucose 271 mg/dL (83-110); Magnesium 2.2 mg/dL (1.6-2.6); Mean Corpuscular Volume 92.6 fl (78.0-98.0); Potassium 4.4 mmol/L (3.5-5.1); Protein, Total 6.5 g/dL (5.8-8.1); Sodium 137 mmol/L (136-145)
[2023-04-08 05:23] LABS: Anisocytosis SLIGHT = 6-15 cells HPF (0-5); Band 4 % (5-11); Burr Cells SLIGHT = 2-5 cells HPF (0-1); CellaVision Operator ID LAB.JMM; Lymphocytes 1 % (21-51); Macrocytosis SLIGHT = 6-15 cells HPF (0-5); Monocytes 11 % (0-10); Neutrophil 84 % (42-75); Platelet Adequacy Comment Platelets Normal; Total Cell Count 99
[2023-04-08] MEDS ORDERED: Sterile Water 0 ML ONE (06:25)
[2023-04-08] MEDS ORDERED: Acetylcysteine 20% 200 MG/ML 30 ML VIAL INH SCH (07:00)
[2023-04-08] MEDS ORDERED: Morphine 4 MG/ML VIAL SLOW IVP PRN (07:56)
[2023-04-08] MEDS ORDERED: Morphine 4 MG/ML VIAL SLOW IVP SCH (08:00)
[2023-04-08] MEDS ORDERED: Meropenem 1 GM in Sodium Chloride 0.9% 100 ML IVPB SCH ×3 (08:00→17:00)
[2023-04-08] MEDS ORDERED: Glimepiride 1 MG TAB PO SCH (08:00)
[2023-04-08] MEDS: Lorazepam 2 MG/ML VIAL SLOW IVP PRN ×2 (08:06→08:30)
[2023-04-08] MEDS ORDERED: Sertraline 100 MG TAB PO SCH (09:00)
[2023-04-08] MEDS ORDERED: Empagliflozin 10 MG TAB PO SCH (09:00)
[2023-04-08] MEDS ORDERED: Losartan 25 MG TAB PO SCH (09:00)
[2023-04-08] MEDS ORDERED: Aspirin 325 mg Enteric Coated Tablet PO SCH (09:00)
[2023-04-10 10:03] LABS: O2 Tension (PaO2), arterial 48.6 mmHg (> 60.0)
[2023-04-10 10:08] LABS: pH, Arterial 7.203 (7.35-7.45)
[2023-04-10 10:09] LABS: Actual Bicarbonate (HCO3a) 11.5 mEq/L (22-28); O2 Tension (PaO2), arterial 50.9 mmHg (> 60.0)
== END 2023-04-08 10:15 | disposition expired | DRG 871 ==
LOC: ERS 06:39 → CCU 11:11
PROVIDERS: ADMIT Hospitalist; ATTEND Internal Medicine
PROC: 5A0935A Assistance with Respiratory Ventilation, Less than 24 Consecutive Hours, High Flow/Velocity Cannula (ICD-10-PCS; principal; 2023-04-07)
PROC: 5A1935Z Respiratory Ventilation, Less than 24 Consecutive Hours (ICD-10-PCS; 2023-04-07)
PROC: 0BH17EZ Insertion of Endotracheal Airway into Trachea, Via Natural or Artificial Opening (ICD-10-PCS; 2023-04-07)
PROC: 4A133R1 Monitoring of Arterial Saturation, Peripheral, Percutaneous Approach (ICD-10-PCS; 2023-04-07)
PROC: 06HY33Z Insertion of Infusion Device into Lower Vein, Percutaneous Approach (ICD-10-PCS; 2023-04-07)
PROC: B54CZZA Ultrasonography of Left Lower Extremity Veins, Guidance (ICD-10-PCS; 2023-04-07)
PROC: 3E043XZ Introduction of Vasopressor into Central Vein, Percutaneous Approach (ICD-10-PCS; 2023-04-08)
DX: A41.9 Sepsis, unspecified organism (principal); G93.41 Metabolic encephalopathy; J69.0 Pneumonitis due to inhalation of food and vomit; I63.9 Cerebral infarction, unspecified; J96.01 Acute respiratory failure with hypoxia; C34.92 Malignant neoplasm of unspecified part of left bronchus or lung; C77.1 Secondary and unspecified malignant neoplasm of intrathoracic lymph nodes; R65.20 Severe sepsis without septic shock; Z66 Do not resuscitate; F03.90 Unspecified dementia, unspecified severity, without behavioral disturbance, psychotic disturbance, mood disturbance, and anxiety; E11.9 Type 2 diabetes mellitus without complications; I25.10 Atherosclerotic heart disease of native coronary artery without angina pectoris; Z20.822 Contact with and (suspected) exposure to COVID-19; D64.9 Anemia, unspecified; E78.5 Hyperlipidemia, unspecified; E86.0 Dehydration; R77.8 Other specified abnormalities of plasma proteins; I95.9 Hypotension, unspecified; I10 Essential (primary) hypertension; Z79.82 Long term (current) use of aspirin; Z79.02 Long term (current) use of antithrombotics/antiplatelets; Z79.899 Other long term (current) drug therapy; Z79.84 Long term (current) use of oral hypoglycemic drugs
CPT/HCPCS: 36415; 36416; 36600; 51701; 70450; 71045; 80053; 81001; 82805; 83036; 83605; 83735; 83880; 84145; 84443; 84484; 85025; 85610; 85730; 87040; 87081; 87086; 93005; 93010; 93970; 94002; 94003; 94640; 94760; 96365; 96367; J0132; J0692; J1644; J1940; J1956; J2060; J2270; J2704; J3010; J3370; J3370-JW; J3475; J3490; J7120; J7620; S0028